=== PATIENT | male | born 1965 | race Hispanic/Latino ===

== ENCOUNTER 2018-06-22 05:52 | Day surgery (SDC) | payer OTHER ==
[~2018-06-22] VITALS: Ht 167.6 cm; Wt 87.8 kg
[2018-06-22] MEDS ORDERED: SODIUM CHLORIDE 0.9% 1000ML 1,000 ML IV ONE ×2 (05:56→07:53)
[2018-06-22 06:35] VITALS: BP 141/81
[2018-06-22] MEDS ORDERED: PROPOFOL 10 MG/ML 20ML VIAL IV ONE (07:55)
[2018-06-22] MEDS ORDERED: GLYCOPYRROLATE 0.2 MG/ML 5 ML VIAL ONE (08:12)
[2018-06-22 08:22] VITALS: BP 107/40
[2018-06-22 08:26] VITALS: BP 104/50
[2018-06-22 08:31] VITALS: BP 115/62
[2018-06-22 08:35] VITALS: BP 140/80
== END 2018-06-22 08:58 | disposition home or self-care (01) ==
LOC: ENDO 05:52 → DAH 05:52 → ENDO 08:58
PROVIDERS: ATTEND Internal Medicine
DX: K44.9 Diaphragmatic hernia without obstruction or gangrene (principal); K21.0 Gastro-esophageal reflux disease with esophagitis; K26.9 Duodenal ulcer, unspecified as acute or chronic, without hemorrhage or perforation; Z68.32 Body mass index [BMI] 32.0-32.9, adult; Z98.890 Other specified postprocedural states; Z88.0 Allergy status to penicillin; E66.9 Obesity, unspecified; Z79.899 Other long term (current) drug therapy
CPT/HCPCS: 43239; A4606; J2704; J3490; J7030 ×2

== ENCOUNTER 2018-10-03 07:06 | Day surgery (SDC) | payer OTHER ==
[~2018-10-03] VITALS: Ht 167.6 cm; Wt 88.0 kg
[~2018-10-03 07:06] MED LIST: SODIUM CHLORIDE 0.9% 1000ML 1,000 ML IV ONE
[2018-10-03 07:31] VITALS: BP 140/78
[2018-10-03] MEDS ORDERED: OMEPRAZOLE PO (08:45)
[2018-10-03] MEDS ORDERED: PROPOFOL 10 MG/ML 20ML VIAL IV ONE (08:55)
[2018-10-03 09:23] VITALS: BP 133/60
[2018-10-03 09:30] VITALS: BP 120/65
[2018-10-03 09:33] VITALS: BP 123/80
== END 2018-10-03 09:52 | disposition home or self-care (01) ==
LOC: DAH 07:06 → ENDO 07:06
PROVIDERS: ATTEND Internal Medicine
DX: K31.7 Polyp of stomach and duodenum (principal); K44.9 Diaphragmatic hernia without obstruction or gangrene; K31.89 Other diseases of stomach and duodenum; R12 Heartburn; K26.9 Duodenal ulcer, unspecified as acute or chronic, without hemorrhage or perforation; K29.50 Unspecified chronic gastritis without bleeding; Z79.899 Other long term (current) drug therapy; Z98.890 Other specified postprocedural states; Z88.0 Allergy status to penicillin; Z68.31 Body mass index [BMI] 31.0-31.9, adult; K21.0 Gastro-esophageal reflux disease with esophagitis
CPT/HCPCS: 43239; A4606; J2704; J7030

== ENCOUNTER 2019-02-21 02:03 | Emergency (ER) | payer OTHER ==
[~2019-02-21 02:03] MED LIST changes: +OMEPRAZOLE PO; -SODIUM CHLORIDE 0.9% 1000ML 1,000 ML IV ONE
[2019-02-21] MEDS ORDERED: LIDOCAINE 5% TOPICAL PATCH TP ONE (02:29)
[2019-02-21] MEDS ORDERED: COLCHICINE 0.6 MG TABLET ONE (02:41)
== END 2019-02-21 03:04 | disposition home or self-care (01) ==
LOC: EDH 02:03
DX: M10.9 Gout, unspecified (principal); M25.561 Pain in right knee; K21.9 Gastro-esophageal reflux disease without esophagitis; Z88.0 Allergy status to penicillin

== ENCOUNTER 2022-02-08 09:14 | Day surgery (SDC) | payer OTHER ==
[2022-02-08] VITALS (9 sets, daily range): BP systolic 115–140; BP diastolic 74–81
[~2022-02-08] VITALS: Ht 167.6 cm; Wt 90.7 kg
[2022-02-08] MEDS ORDERED: 0.9%NACL 1000ML 1,000 ML IV ONE (10:01)
[2022-02-08] MEDS ORDERED: PROPOFOL 10 MG/ML 20ML VIAL IV ONE ×2 (11:37→11:38)
[2022-02-08] MEDS ORDERED: OMEPRAZOLE PO (12:32)
== END 2022-02-08 12:40 | disposition home or self-care (01) ==
LOC: ENDO 09:14 → DAH 09:14 → ENDO 12:40
PROVIDERS: ATTEND Internal Medicine Gastroenterology
DX: K21.00 Gastro-esophageal reflux disease with esophagitis, without bleeding (principal); K31.89 Other diseases of stomach and duodenum; K44.9 Diaphragmatic hernia without obstruction or gangrene; K29.50 Unspecified chronic gastritis without bleeding; Z79.899 Other long term (current) drug therapy
CPT/HCPCS: 43239; 87635; A4215 ×2; A4221; A4222; A4223; A4606; A4620; A4663; C9803; J2704 ×2; J7030